=== PATIENT | female | born 1995 | race Caucasian/White ===

== ENCOUNTER 2022-03-29 16:41 | Emergency (ER) | payer SELFPAY ==
[~2022-03-29] VITALS: Ht 167.6 cm; Wt 74.8 kg
[2022-03-29] MEDS ORDERED: CLIN300C3 PO (17:05)
--- NOTE | 2022-03-29 17:35 | NUR ---
PT WAS EVALUATED BY DR DIAS. PT WAS D/C'd TO HOME. D/C INSTRUCTIONS GIVEN TO THE PT BY DR DIAS.
[2022-03-29 17:36] VITALS: BP 129/75
== END 2022-03-29 17:37 | disposition home or self-care (01) ==
LOC: ER 16:46
DX: L03.211 Cellulitis of face (principal); K02.9 Dental caries, unspecified; Z28.310 Unvaccinated for COVID-19
CPT/HCPCS: A4663